=== PATIENT | male | born 1965 | race Hispanic/Latino ===

== ENCOUNTER 2018-10-26 02:36 | Emergency (ER) | payer BC ==
[2018-10-26 03:01] VITALS: TEMP 98.7
--- NOTE | 2018-10-26 03:28 | ED PDOC ---
HPI: Chest Pain Time Seen by Provider: 10/26/18 03:13 Chief Complaint (Nursing): Palpitations Chief Complaint (Provider): Palpitations History Per: Patient History/Exam Limitations: no limitations Onset/Duration Of Symptoms: Hrs (four to five), Intermittent Episodes Current Symptoms Are (Timing): Gone Now (Pt presents to the ED complaining of several hours of heart palpitations and racing heart. Pt indicates that he has experineced these symptoms before and has been evaluated with an echocardiagram and a stress test by a machine clothing man with benign results. Pt notes that he would like a referral to a local machine clothing man prior to discharge. Pt also complains of mild lightheadedness this evening coincident with the palpitations. Pt denies LOC, synocope, pre-syncope, nausea, vomiting, fever or diarhhea; pt also denies urinary symptoms and ill contacts.) Past Medical History Reviewed: Historical Data, Nursing Documentation, Vital Signs Vital Signs: Last Vital Signs Temp 98.7 F 10/26/18 02:52 Pulse 81 10/26/18 02:52 Resp 17 10/26/18 02:52 BP 158/104 H 10/26/18 02:52 Pulse Ox 100 10/26/18 02:52 - Family History Family History: States: Unknown Family Hx - Allergies Allergies/Adverse Reactions: Allergies Allergy/AdvReac Type Severity Reaction Status Date / Time No Known Allergies Allergy Verified 10/26/18 03:07 KENYATTA Risk Score for UA/NSTEMI - KENYATTA Risk Score Age > 64: NO 3 or more CAD Risk Factors: NO Known CAD (Stenosis greater than 50%): NO Aspirin use in past 7 days: YES (pt notes that he used aspirin (ASA) earlier in the week because he was not feeling well, but not for cardiac symptoms and was not ordered by a machine clothing man or PMD to so take the ASA) Severe Angina: NO EKG ST changes greater than 0.5mm: NO Positive Cardiac Marker: NO KENYATTA Score: 1 Risk %: 5% Review of Systems ROS Statement: Except As Marked, All Systems Reviewed And Found Negative Constitutional: Positive for: Sweats Cardiovascular: Positive for: Chest Pain, Palpitations Neurological: Positive for: Dizziness Physical Exam - Reviewed Nursing Documentation Reviewed: Yes Vital Signs Reviewed: Yes - Physical Exam Appears: Positive for: Well, Non-toxic, No Acute Distress. Negative for: Uncomfortable Head Exam: Positive for: ATRAUMATIC, NORMAL INSPECTION Skin: Positive for: Normal Color, Warm, Dry. Negative for: Diaphoresis, Pallor, Rash Eye Exam: Positive for: Normal appearance, PERRL. Negative for: Nystagmus, Periorbital swelling, Periorbital tenderness ENT: Positive for: Normal ENT Inspection Neck: Positive for: Normal, Supple Cardiovascular/Chest: Positive for: Regular Rate, Rhythm, Chest Non Tender. Negative for: Edema, Gallop, Murmur, Bradycardia, Tachycardia, Ectopy Respiratory: Positive for: Normal Breath Sounds. Negative for: Crackles, Rales, Rhonchi, Stridor, Wheezing, Respiratory Distress Pulses-Carotid (L): 2+ Pulses-Carotid (R): 2+ Pulses-Radial (L): 2+ Pulses-Radial (R): 2+ - Laboratory Results Result Diagrams: 10/26/18 03:35 10/26/18 03:35 - ECG ECG: Positive for: Interpreted By Me, Viewed By Me ECG Rhythm: Positive for: Normal QRS, Normal ST Segment, Sinus Rhythm Rate: 83 O2 Sat by Pulse Oximetry: 100 Pulse Ox Interpretation: Normal Medical Decision Making Medical Decision Making: I: R/O ACS related cause to palpitations P: troponin, cbc cmp, ua cxr, coags The patient's diagnostics have been returned with all benign results. The patient was notified and requested a referral prior to discharge. The patient was informed of all of these results, including a negative influenza test. Pt requests discharge The patient is stable for discharge. Disposition - Clinical Impression Clinical Impression: Palpitations - Patient ED Disposition Is Patient to be Admitted: No - Disposition Referrals: Ino Lloyd MD [Staff Provider] - Disposition: Routine/Home Disposition Time: 05:38 Condition: STABLE Additional Instructions: FOLLOW UP TO CARDIOLOGY PROVIDED REQUESTED Instructions: Palpitations (DC), Palpitations Forms: [facility] (Lithuanian)
[2018-10-26 04:01] LABS: BASO % 0.5 % (0.0-2.0); EOS # 0.2 K/uL (0.0-0.7); EOS % 2.6 % (0.0-4.0); HEMOGLOBIN 15.1 g/dL (12.0-18.0); LYMPH # 1.6 K/uL (1.0-4.3); LYMPH % 23.7 % (20.0-40.0); MEAN CORPUSCULAR HEMOGLOBIN 29.2 pg (27.0-31.0); MEAN CORPUSCULAR HGB CONC 33.6 g/dL (33.0-37.0); MONO # 0.6 K/uL (0.0-0.8); MONO % 9.5 % (0.0-10.0); NEUT # 4.2 K/uL (1.8-7.0); NEUT % 63.7 % (50.0-75.0); NRBC % 0.1 % (0.0-0.0); PROTHROMBIN TIME 10.8 Seconds (9.8-13.1); RBC 5.18 Mil/uL (4.40-5.90); RED CELL DISTRIBUTION WIDTH 14.3 % (11.5-14.5); WHITE BLOOD COUNT 6.6 K/uL (4.8-10.8)
[2018-10-26 04:03] LABS: PARTIAL THROMBOPLASTIN TIME 37.3 Seconds (25.6-37.1)
[2018-10-26 04:05] LABS: ALB/GLOB RATIO 1.2 (1.0-2.1); ALBUMIN 4.7 g/dL (3.5-5.0); ALT/SGPT 34 U/L (21-72); AST/SGOT 39 U/L (17-59); BLOOD UREA NITROGEN 21 mg/dl (9-20); CALCIUM 9.8 mg/dL (8.4-10.2); GFR NON-AFRICAN AMERICAN > 60
[2018-10-26] MEDS ORDERED: Sodium Chloride 0.9% 1,000 ML IV ONE (04:37)
[2018-10-26 06:03] VITALS: BP 143/89; PULSE 63; RESP 16; O2SAT 97
--- NOTE | 2018-10-26 08:24 | CARD ---
APPROVED REPORT Date of service: 10/26/2018 EKG Measurement Heart [id number] <Conclusion> Normal sinus rhythm Normal ECG
--- NOTE | 2018-10-26 10:00 | RAD ---
Date of service: 10/26/2018 HISTORY: palp/chest pain COMPARISON: No prior. TECHNIQUE: Chest PA and lateral views FINDINGS: LUNGS: No active pulmonary disease. PLEURA: No significant pleural effusion identified. No pneumothorax apparent. CARDIOVASCULAR: No aortic atherosclerotic calcification present. Normal cardiac size. No pulmonary vascular congestion. OSSEOUS STRUCTURES: No significant abnormalities. VISUALIZED UPPER ABDOMEN: Normal. OTHER FINDINGS: None. IMPRESSION: No active disease.
== END 2018-10-26 06:00 | disposition home or self-care (01) ==
LOC: H.ER 02:36
DX: R00.2 Palpitations (principal)